=== PATIENT | female | born 1965 | race Caucasian/White ===

== ENCOUNTER 2017-01-03 08:18 | Emergency (ER) | payer OTHER ==
--- NOTE | 2017-01-03 08:56 | EDPHY ---
H & P Time Seen by Provider: 01/03/17 08:56 HPI/ROS: CHIEF COMPLAINT: Nausea vomiting and diarrhea HISTORY OF PRESENT ILLNESS: Patient ate at restaurant yesterday and late last night developed multiple episodes of nausea vomiting and diarrhea. Symptoms moderate to severe and associated with very mild abdominal cramping which does not radiate. No blood in the emesis or in stool. No fevers or chills. Symptoms worse with oral intake. REVIEW OF SYSTEMS: Eye: no change in vision ENT: no sore throat Cardiac: no chest pain or syncope Pulmonary: no cough or SOB Abdomen: HPI Musculoskeletal: no back pain Skin: no rash Neuro: no headache Constitutional: no fever : no urinary symptoms A comprehensive 10 point review of systems is otherwise negative aside from elements mentioned in the history of present illness. PAST MEDICAL HISTORY: , no other abdominal surgeries. Social history: Visiting her family, originally from [place]. General Appearance: Alert and conversant, cooperative. Eyes: No scleral icterus. ENT, Mouth: Slightly dry mucous membranes Respiratory: Normal respiratory effort, breath sounds equal, lungs are clear to auscultation. Cardiovascular: Regular rate and rhythm. Gastrointestinal: Abdomen is soft and non tender. No rebound or guarding Neurological: Alert and oriented x3. Normally conversant. Face symmetric, normal movement and sensation in all extremities. Skin: Warm and dry, no rashes. Musculoskeletal: No peripheral edema and no joint swelling. Psychiatric: Not agitated. Emergency Department course/MDM: Likely food related or viral gastroenteritis. Treatment was discussed with the patient, the same in either case. Normal saline 2 L IV for vomiting, Zofran 4 mg IV. Does not have symptoms to suggest surgical abdominal process. Oral Imodium okay is no blood in the stool. Feels well after treatment, no further vomiting, stable for discharge Smoking Status: Never smoked Constitutional: Initial Vital Signs Temperature (C) 36.7 C 01/03/17 08:21 Heart Rate 94 01/03/17 08:21 Respiratory Rate 20 01/03/17 08:21 Blood Pressure 96/64 L 01/03/17 08:21 O2 Sat (%) 97 01/03/17 08:21 O2 Delivery Mode Room Air Allergies/Adverse Reactions: No Known Allergies Allergy (Unverified 01/03/17 08:20) Home Medications: Medication Instructions Recorded [facility] 01/03/17 Medical Decision Making Differential Diagnosis: Differential diagnosis considered for nausea and vomiting including but not limited to gastroenteritis, gastritis, appendicitis, and medication side effect. - Data Points Medications Given: Discontinued Medications Dicyclomine HCl (Bentyl) 10 mg PO EDNOW ONE Stop: 01/03/17 09:33 Last Admin: 01/03/17 09:42 Dose: 10 mg Sodium Chloride (Ns) 1,000 mls @ 0 mls/hr IV ONCE ONE PRN Reason: Wide Open Stop: 01/03/17 09:07 Last Admin: 01/03/17 09:26 Dose: 1,000 mls Sodium Chloride (Ns) 1,000 mls @ 0 mls/hr IV ONCE ONE PRN Reason: Wide Open Stop: 01/03/17 09:07 Last Admin: 01/03/17 09:26 Dose: 1,000 mls Loperamide HCl (Imodium) 4 mg PO EDNOW ONE Stop: 01/03/17 09:10 Last Admin: 01/03/17 09:26 Dose: 4 mg Ondansetron HCl (Zofran) 4 mg IVP EDNOW ONE Stop: 01/03/17 09:07 Last Admin: 01/03/17 09:25 Dose: 4 mg Departure - Departure Disposition: Home, Routine, Self-Care Clinical Impression: Vomiting and diarrhea, Dehydration Condition: Good Instructions: Acute Nausea and Vomiting (ED) Referrals: Rosita Wagner MD [Medical Doctor] - As per Instructions
[2017-01-03] MEDS ORDERED: ONDANSETRON 4 MG/2 ML VIAL IVP ONE (09:06)
[2017-01-03] MEDS ORDERED: NS 1,000 ML IV ONE ×2 (09:06)
[2017-01-03] MEDS ORDERED: LOPERAMIDE HCL 2 MG CAP PO ONE (09:09)
[2017-01-03] MEDS ORDERED: DICYCLOMINE 10 MG CAP PO ONE (09:32)
[2017-01-03 11:15] VITALS: BP 96/57; PULSE 97; RESP 16; TEMP 99.1; O2SAT 98
== END 2017-01-03 11:15 | disposition home or self-care (01) ==
LOC: EDBD 08:18
DX: R11.2 Nausea with vomiting, unspecified (principal); R19.7 Diarrhea, unspecified; E86.0 Dehydration
CPT/HCPCS: 96374; J2405